=== PATIENT | male | born 1960 | race Caucasian/White ===

== ENCOUNTER 2017-04-20 10:34 | Emergency (ER) | payer MEDICARE, BC ==
[2017-04-20] MEDS: morphine 4 MG/ML VIAL IV (12:01)
[2017-04-20] MEDS: CLINDAMYCIN 600 MG/D5W (PMX) 50 ML IVPB (12:02)
[2017-04-20] MEDS: DIPHTH/TET/ACEL PERTUSS (ADULT) 0.5 ML VIAL IM* (12:02)
[2017-04-20 12:04] LABS: ADD MAN DIFF? NO
[2017-04-20 12:09] LABS: BASOPHIL # 0.1 10^3/ul (0.0-0.1); BASOPHILS % 0.9 % (0.0-2.0); EOSINOPHILS # 0.1 10^3/ul (0.0-0.5); EOSINOPHILS % 1.2 % (0.0-7.0); HEMATOCRIT 34.8 % (42.0-52.0); HEMOGLOBIN 11.4 g/dl (14.0-18.0); LYMPHOCYTES % 13.6 % (15.0-51.0); MEAN CORPUSCULAR HEMOGLOBIN 32.3 pg (29.0-33.0); MEAN CORPUSCULAR HGB CONC 32.8 g/dl (32.0-37.0); MEAN CORPUSCULAR VOLUME 98.6 fl (82.0-101.0); MEAN PLATELET VOLUME 10.8 fl (7.4-10.4); MONOCYTE # 0.8 10^3/ul (0.3-0.9); MONOCYTES % 10.7 % (0.0-11.0); NEUTROPHIL # 5.4 10^3/ul (1.6-7.5); NEUTROPHILS % 71.5 % (39.0-77.0); PLATELET COUNT 146 10^3/UL (140-415); RED BLOOD COUNT 3.53 10^6/ul (4.70-6.10); RED CELL DISTRIBUTION WIDTH 17.7 % (11.5-14.5)
[2017-04-20 12:09] LABS: WHITE BLOOD COUNT 7.5 10^3/ul (4.8-10.8)
[2017-04-20 12:38] LABS: ALANINE AMINOTRANSFERASE 37 IU/L (13-69); ALBUMIN 4.9 g/dl (3.3-4.9); ALBUMIN/GLOBULIN RATIO 1.13; ALKALINE PHOSPHATASE 226 IU/L (42-121); ANION GAP 20 (8-16); ASPARTATE AMINO TRANSFERASE 50 IU/L (15-46); BILIRUBIN,INDIRECT 0.1 mg/dl (0-1.1); BILIRUBIN,TOTAL 0.1 mg/dl (0.2-1.3); BLOOD UREA NITROGEN 10 mg/dl (7-20); CALCIUM 9.9 mg/dl (8.4-10.2); CARBON DIOXIDE 25 mmol/L (21-31); CHLORIDE 107 mmol/L (97-110); CREATININE 0.77 mg/dl (0.61-1.24); GLUCOSE 149 mg/dl (70-220); POTASSIUM 4.6 mmol/L (3.5-5.1); SODIUM 147 mmol/L (135-144); TOTAL PROTEIN 9.2 g/dl (6.1-8.1)
[2017-04-20] MEDS: CIPROFLOXACIN 400MG/D5W 200 ML IVPB (13:12)
== END 2017-04-20 15:10 | disposition home or self-care (01) ==
LOC: FTE 10:34
DX: S91.332A Puncture wound without foreign body, left foot, initial encounter (principal); L03.116 Cellulitis of left lower limb; F17.210 Nicotine dependence, cigarettes, uncomplicated; W45.0XXA Nail entering through skin, initial encounter; Y92.9 Unspecified place or not applicable; Z23 Encounter for immunization
CPT/HCPCS: 36415; 72100; 73630-LT; 80053; 85025; 90471; 90715; 96374; 96375; 99284-25

== ENCOUNTER 2017-04-24 10:36 | Inpatient (IN) | payer MEDICARE, BC ==
[2017-04-24 13:03] LABS: ADD MAN DIFF? NO
[2017-04-24 13:05] LABS: BASOPHIL # 0.1 10^3/ul (0.0-0.1); BASOPHILS % 0.8 % (0.0-2.0); EOSINOPHILS # 0.1 10^3/ul (0.0-0.5); EOSINOPHILS % 1.5 % (0.0-7.0); HEMATOCRIT 32.7 % (42.0-52.0); HEMOGLOBIN 10.6 g/dl (14.0-18.0); LYMPHOCYTES # 1.2 10^3/ul (0.8-2.9); LYMPHOCYTES % 17.3 % (15.0-51.0); MEAN CORPUSCULAR HEMOGLOBIN 31.2 pg (29.0-33.0); MEAN CORPUSCULAR HGB CONC 32.4 g/dl (32.0-37.0); MEAN CORPUSCULAR VOLUME 96.2 fl (82.0-101.0); MEAN PLATELET VOLUME 10.3 fl (7.4-10.4); MONOCYTE # 0.7 10^3/ul (0.3-0.9); NEUTROPHIL # 4.8 10^3/ul (1.6-7.5); NEUTROPHILS % 67.2 % (39.0-77.0); PLATELET COUNT 208 10^3/UL (140-415); RED CELL DISTRIBUTION WIDTH 17.2 % (11.5-14.5)
[2017-04-24 13:05] LABS: WHITE BLOOD COUNT 7.1 10^3/ul (4.8-10.8)
[2017-04-24] MEDS: PIPER-TAZO 3.375 GM IV (PMX) 100 ML IVPB ×2 (13:15→22:00)
[2017-04-24] MEDS: SODIUM CHLORIDE 0.9% 1L BAG IV* (13:15)
[2017-04-24] MEDS: morphine 4 MG/ML VIAL IV (13:15)
[2017-04-24 13:25] LABS: ALANINE AMINOTRANSFERASE 69 IU/L (13-69); ALBUMIN 4.7 g/dl (3.3-4.9); ALKALINE PHOSPHATASE 241 IU/L (42-121); ANION GAP 18 (8-16); ASPARTATE AMINO TRANSFERASE 69 IU/L (15-46); BLOOD UREA NITROGEN 11 mg/dl (7-20); CALCIUM 9.3 mg/dl (8.4-10.2); CARBON DIOXIDE 22 mmol/L (21-31); CHLORIDE 106 mmol/L (97-110); CREATININE 0.73 mg/dl (0.61-1.24); GLUCOSE 135 mg/dl (70-220); POTASSIUM 3.6 mmol/L (3.5-5.1); SODIUM 142 mmol/L (135-144); TOTAL PROTEIN 8.6 g/dl (6.1-8.1)
[2017-04-24] MEDS: LORAZEPAM 1 MG TAB PO (14:01)
[2017-04-24] MEDS: VANCOMYCIN 1 GM (PMX) 250 ML IVPB (14:06)
[2017-04-24] MEDS ORDERED: ONDANSETRON 4 MG INJ IV ×2 (15:30→17:30)
[2017-04-24] MEDS ORDERED: ACETAMINOPHEN 325 MG TAB PO (15:30)
[2017-04-24] MEDS ORDERED: CYCLOBENZAPRINE 10 MG TAB PO (17:30)
[2017-04-24] MEDS ORDERED: VANCOMYCIN IV PER PHARMACY XX (17:30)
[2017-04-24] MEDS ORDERED: ACET/BUTAL/CAFF TAB PO (17:30)
[2017-04-24] MEDS ORDERED: MAGNESIUM HYDROXIDE 30ML CUP PO (17:30)
[2017-04-24] MEDS ORDERED: ALBUTEROL 0.083% (NEB) 2.5 MG/3 ML AMP NEB (17:30)
[2017-04-24] MEDS: NICOTINE (21 MG/24 HR) PATCH TRANSDERM (17:30)
[2017-04-24] MEDS ORDERED: DOCUSATE SODIUM 100 MG CAP PO (17:30)
[2017-04-24] MEDS ORDERED: HYDROCODONE/APAP (5/325) TAB PO (17:30)
[2017-04-24] MEDS: CLINDAMYCIN 900 MG/D5W (PMX) 50 ML IVPB (18:02)
[2017-04-24 18:51] LABS: INR 0.97
[2017-04-24 18:52] LABS: PARTIAL THROMBOPLASTIN TIME 34.9 Sec (25.0-35.0)
[2017-04-24 18:55] LABS: IRON 50 ug/dl (35-150)
[2017-04-24 19:05] LABS: % IRON SATURATION 12 % SAT (22-52); TOTAL IRON BINDING CAPACITY 401 ug/dl (241-421)
[2017-04-24] MEDS: LEVETIRACETAM 500 MG TAB PO (21:35)
[2017-04-25] MEDS: VANCOMYCIN 1 GM (PMX) 250 ML IVPB ×2 (02:02→15:00)
[2017-04-25 05:52] LABS: ADD MAN DIFF? NO
[2017-04-25 06:05] LABS: BASOPHIL # 0.1 10^3/ul (0.0-0.1); BASOPHILS % 1.4 % (0.0-2.0); EOSINOPHILS # 0.1 10^3/ul (0.0-0.5); EOSINOPHILS % 2.4 % (0.0-7.0); HEMATOCRIT 31.1 % (42.0-52.0); HEMOGLOBIN 10.1 g/dl (14.0-18.0); LYMPHOCYTES # 1.3 10^3/ul (0.8-2.9); LYMPHOCYTES % 26.6 % (15.0-51.0); MEAN CORPUSCULAR HEMOGLOBIN 31.3 pg (29.0-33.0); MEAN CORPUSCULAR HGB CONC 32.5 g/dl (32.0-37.0); MEAN CORPUSCULAR VOLUME 96.3 fl (82.0-101.0); MEAN PLATELET VOLUME 10.6 fl (7.4-10.4); MONOCYTE # 0.6 10^3/ul (0.3-0.9); MONOCYTES % 12.5 % (0.0-11.0); NEUTROPHIL # 2.7 10^3/ul (1.6-7.5); NEUTROPHILS % 54.9 % (39.0-77.0); PLATELET COUNT 192 10^3/UL (140-415); RED BLOOD COUNT 3.23 10^6/ul (4.70-6.10); RED CELL DISTRIBUTION WIDTH 17.2 % (11.5-14.5)
[2017-04-25] MEDS: PIPER-TAZO 3.375 GM IV (PMX) 100 ML IVPB ×3 (06:05→21:49)
[2017-04-25] MEDS: PANTOPRAZOLE (EC) 40 MG TAB PO (06:06)
[2017-04-25 06:32] LABS: ALBUMIN 3.9 g/dl (3.3-4.9); ANION GAP 13 (8-16); BLOOD UREA NITROGEN 12 mg/dl (7-20); CALCIUM 9.4 mg/dl (8.4-10.2); CARBON DIOXIDE 24 mmol/L (21-31); CHLORIDE 108 mmol/L (97-110); CREATININE 0.82 mg/dl (0.61-1.24); GLUCOSE 138 mg/dl (70-220); MAGNESIUM 1.9 mg/dl (1.7-2.5); PHOSPHORUS 4.1 mg/dl (2.5-4.9); POTASSIUM 4.1 mmol/L (3.5-5.1); SODIUM 141 mmol/L (135-144)
[2017-04-25] MEDS ORDERED: DEXTROSE 5%-0.45% NACL 1,000 ML IV ×2 (09:00→20:00)
[2017-04-25] MEDS: LEVETIRACETAM 500 MG TAB PO ×2 (09:13→20:08)
[2017-04-25] MEDS: AMLODIPINE 5 MG TAB PO (09:14)
[2017-04-25] MEDS: ASPIRIN (EC) 81 MG TAB PO (09:15)
[2017-04-25] MEDS: NICOTINE (21 MG/24 HR) PATCH TRANSDERM (17:29)
[2017-04-26] MEDS: hydrALAzine 20 MG INJ IV (00:06)
[2017-04-26 01:30] LABS: VANCOMYCIN,TROUGH 10.8 ug/ml (10.0-20.0)
[2017-04-26] MEDS: VANCOMYCIN 1 GM (PMX) 250 ML IVPB ×2 (01:56→14:16)
[2017-04-26 06:16] LABS: ADD MAN DIFF? NO
[2017-04-26 06:29] LABS: BASOPHIL # 0.1 10^3/ul (0.0-0.1); EOSINOPHILS # 0.1 10^3/ul (0.0-0.5); EOSINOPHILS % 2.3 % (0.0-7.0); HEMATOCRIT 32.4 % (42.0-52.0); HEMOGLOBIN 10.5 g/dl (14.0-18.0); LYMPHOCYTES # 1.5 10^3/ul (0.8-2.9); LYMPHOCYTES % 24.1 % (15.0-51.0); MEAN CORPUSCULAR HGB CONC 32.4 g/dl (32.0-37.0); MEAN CORPUSCULAR VOLUME 95.6 fl (82.0-101.0); MEAN PLATELET VOLUME 10.5 fl (7.4-10.4); MONOCYTE # 0.6 10^3/ul (0.3-0.9); MONOCYTES % 9.1 % (0.0-11.0); NEUTROPHIL # 3.8 10^3/ul (1.6-7.5); NEUTROPHILS % 61.9 % (39.0-77.0); PLATELET COUNT 209 10^3/UL (140-415); RED BLOOD COUNT 3.39 10^6/ul (4.70-6.10); RED CELL DISTRIBUTION WIDTH 16.9 % (11.5-14.5)
[2017-04-26 06:29] LABS: WHITE BLOOD COUNT 6.1 10^3/ul (4.8-10.8)
[2017-04-26] MEDS: PANTOPRAZOLE (EC) 40 MG TAB PO (06:45)
[2017-04-26] MEDS: PIPER-TAZO 3.375 GM IV (PMX) 100 ML IVPB ×3 (06:45→20:53)
[2017-04-26 06:49] LABS: ALBUMIN 4.4 g/dl (3.3-4.9); ANION GAP 15 (8-16); BLOOD UREA NITROGEN 12 mg/dl (7-20); CALCIUM 9.8 mg/dl (8.4-10.2); CARBON DIOXIDE 26 mmol/L (21-31); CHLORIDE 107 mmol/L (97-110); CREATININE 0.75 mg/dl (0.61-1.24); GLUCOSE 141 mg/dl (70-220); MAGNESIUM 1.9 mg/dl (1.7-2.5); PHOSPHORUS 3.7 mg/dl (2.5-4.9); POTASSIUM 3.9 mmol/L (3.5-5.1); SODIUM 144 mmol/L (135-144)
[2017-04-26] MEDS ORDERED: MIDAZOLAM 1 MG/ML 2 ML INJ (07:53)
[2017-04-26] MEDS ORDERED: POLYMYXIN B 500000 UNIT INJ (07:55)
[2017-04-26] MEDS: POLYMYXIN B 500000 UNIT INJ IRR (08:24)
[2017-04-26] MEDS: BACITRACIN 50000 UNITS INJ IRR (08:24)
[2017-04-26] MEDS: BUPIVACAINE 0.25% (MPF) 30 ML INJ (08:35)
[2017-04-26] MEDS ORDERED: PROPOFOL 20 ML (08:42)
[2017-04-26] MEDS ORDERED: LIDOCAINE 100 MG SYRINGE (08:42)
[2017-04-26] MEDS: AMLODIPINE 5 MG TAB PO (09:22)
[2017-04-26] MEDS: ASPIRIN (EC) 81 MG TAB PO (09:22)
[2017-04-26] MEDS: LEVETIRACETAM 500 MG TAB PO ×2 (09:22→20:52)
[2017-04-26] MEDS: NICOTINE (21 MG/24 HR) PATCH TRANSDERM (17:25)
[2017-04-27] MEDS: VANCOMYCIN 1 GM (PMX) 250 ML IVPB ×2 (02:26→15:16)
[2017-04-27 05:26] LABS: ADD MAN DIFF? NO
[2017-04-27 05:31] LABS: WHITE BLOOD COUNT 6.5 10^3/ul (4.8-10.8)
[2017-04-27 05:31] LABS: BASOPHIL # 0.1 10^3/ul (0.0-0.1); BASOPHILS % 1.1 % (0.0-2.0); EOSINOPHILS # 0.1 10^3/ul (0.0-0.5); EOSINOPHILS % 1.7 % (0.0-7.0); HEMATOCRIT 31.1 % (42.0-52.0); HEMOGLOBIN 10.1 g/dl (14.0-18.0); LYMPHOCYTES # 1.7 10^3/ul (0.8-2.9); LYMPHOCYTES % 26.1 % (15.0-51.0); MEAN CORPUSCULAR HEMOGLOBIN 30.8 pg (29.0-33.0); MEAN CORPUSCULAR HGB CONC 32.5 g/dl (32.0-37.0); MEAN CORPUSCULAR VOLUME 94.8 fl (82.0-101.0); MEAN PLATELET VOLUME 10.5 fl (7.4-10.4); MONOCYTE # 0.6 10^3/ul (0.3-0.9); MONOCYTES % 8.8 % (0.0-11.0); NEUTROPHILS % 61.4 % (39.0-77.0); PLATELET COUNT 204 10^3/UL (140-415); POSITIVE DIFF @See below; RED BLOOD COUNT 3.28 10^6/ul (4.70-6.10); RED CELL DISTRIBUTION WIDTH 16.4 % (11.5-14.5)
[2017-04-27] MEDS: PIPER-TAZO 3.375 GM IV (PMX) 100 ML IVPB ×3 (05:53→21:19)
[2017-04-27] MEDS: PANTOPRAZOLE (EC) 40 MG TAB PO ×2 (05:53→05:57)
[2017-04-27 06:09] LABS: ALBUMIN 4.2 g/dl (3.3-4.9); ANION GAP 15 (8-16); BLOOD UREA NITROGEN 11 mg/dl (7-20); CALCIUM 9.3 mg/dl (8.4-10.2); CARBON DIOXIDE 24 mmol/L (21-31); CHLORIDE 108 mmol/L (97-110); CREATININE 0.85 mg/dl (0.61-1.24); GLUCOSE 152 mg/dl (70-220); MAGNESIUM 1.9 mg/dl (1.7-2.5); PHOSPHORUS 3.6 mg/dl (2.5-4.9); POTASSIUM 3.8 mmol/L (3.5-5.1); SODIUM 143 mmol/L (135-144)
[2017-04-27] MEDS: AMLODIPINE 5 MG TAB PO (08:27)
[2017-04-27] MEDS: LEVETIRACETAM 500 MG TAB PO ×2 (08:27→20:33)
[2017-04-27] MEDS: ASPIRIN (EC) 81 MG TAB PO (08:27)
[2017-04-27] MEDS: HYDROCODONE/APAP (5/325) TAB PO ×2 (11:29→17:39)
[2017-04-27] MEDS: NICOTINE (21 MG/24 HR) PATCH TRANSDERM (17:39)
[2017-04-28] MEDS: VANCOMYCIN 1 GM (PMX) 250 ML IVPB (02:05)
[2017-04-28] MEDS: PANTOPRAZOLE (EC) 40 MG TAB PO (05:21)
[2017-04-28] MEDS: PIPER-TAZO 3.375 GM IV (PMX) 100 ML IVPB (05:21)
[2017-04-28] MEDS: LEVETIRACETAM 500 MG TAB PO ×2 (09:27→21:18)
[2017-04-28] MEDS: AMLODIPINE 5 MG TAB PO (09:28)
[2017-04-28] MEDS: ASPIRIN (EC) 81 MG TAB PO (09:28)
[2017-04-28] MEDS: CEFTRIAXONE 1 GM/50 ML (PMX) 50 ML IVPB (12:57)
[2017-04-28] MEDS: NICOTINE (21 MG/24 HR) PATCH TRANSDERM (17:46)
[2017-04-29 02:30] LABS: VANCOMYCIN,TROUGH 6.2 ug/ml (10.0-20.0)
[2017-04-29] MEDS: PANTOPRAZOLE (EC) 40 MG TAB PO (06:09)
[2017-04-29] MEDS: ACETAMINOPHEN 325 MG TAB PO (06:10)
[2017-04-29 06:45] LABS: HEMATOCRIT 31.7 % (42.0-52.0); HEMOGLOBIN 10.3 g/dl (14.0-18.0); MEAN CORPUSCULAR HEMOGLOBIN 31.1 pg (29.0-33.0); MEAN CORPUSCULAR HGB CONC 32.5 g/dl (32.0-37.0); MEAN CORPUSCULAR VOLUME 95.8 fl (82.0-101.0); MEAN PLATELET VOLUME 11.2 fl (7.4-10.4); PLATELET COUNT 195 10^3/UL (140-415); POSITIVE DIFF @See below; RED BLOOD COUNT 3.31 10^6/ul (4.70-6.10); RED CELL DISTRIBUTION WIDTH 16.3 % (11.5-14.5)
[2017-04-29 06:45] LABS: WHITE BLOOD COUNT 4.5 10^3/ul (4.8-10.8)
[2017-04-29 06:57] LABS: ADD MAN DIFF? YES
[2017-04-29 07:08] LABS: ANION GAP 15 (8-16); BLOOD UREA NITROGEN 19 mg/dl (7-20); CALCIUM 9.3 mg/dl (8.4-10.2); CARBON DIOXIDE 24 mmol/L (21-31); CHLORIDE 107 mmol/L (97-110); CREATININE 0.85 mg/dl (0.61-1.24); GLUCOSE 152 mg/dl (70-220); MAGNESIUM 1.9 mg/dl (1.7-2.5); POTASSIUM 3.7 mmol/L (3.5-5.1); SODIUM 142 mmol/L (135-144)
[2017-04-29 08:12] LABS: ANISOCYTOSIS 1+ (0-0); BASOPHIL #M 0.1 10^3/ul (0.0-0.0); BASOPHILS % (M) 3 % (0-2); EOSINOPHILS % (M) 2 % (0-7); LYMPHOCYTES #M 1.3 10^3/ul (0.8-2.9); LYMPHOCYTES % (M) 29 % (15-51); MICROCYTOSIS 1+ (0-0); MONOCYTE #M 0.3 10^3/ul (0.3-0.9); MONOCYTES % (M) 7 % (0-11); MYELOCYTES % (M) 1 % (0-0); PLATELET ESTIMATE NORMAL; POLYCHROMASIA 3+ (0-0); REACTIVE LYMPHOCYTES% (M) 1 % (0-0); SEGMENTED NEUTROPHILS (M) % 57 % (39-77); SMUDGE%M 6 % (0-0)
[2017-04-29] MEDS: LEVETIRACETAM 500 MG TAB PO (09:15)
[2017-04-29] MEDS: AMLODIPINE 5 MG TAB PO (09:15)
[2017-04-29] MEDS: ASPIRIN (EC) 81 MG TAB PO (09:16)
[2017-04-29] MEDS: LEVOFLOXACIN 500 MG TAB PO ×2 (12:30)
[2017-04-30] MEDS ORDERED: LEVOFLOXACIN 500 MG TAB PO (06:00)
== END 2017-04-29 17:32 | disposition home health service (06) | DRG 570 ==
LOC: ICU 15:10 → FTE 10:36 → PP2 04-26 13:55
PROC: 0J9R0ZX Drainage of Left Foot Subcutaneous Tissue and Fascia, Open Approach, Diagnostic (ICD-10-PCS; principal; 2017-04-26 07:30)
PROC: 0JBR0ZZ Excision of Left Foot Subcutaneous Tissue and Fascia, Open Approach (ICD-10-PCS; 2017-04-26 07:30)
DX: L03.116 Cellulitis of left lower limb (principal); I62.02 Nontraumatic subacute subdural hemorrhage; L02.612 Cutaneous abscess of left foot; G40.909 Epilepsy, unspecified, not intractable, without status epilepticus; D64.9 Anemia, unspecified; F17.200 Nicotine dependence, unspecified, uncomplicated; Z87.820 Personal history of traumatic brain injury; Z91.81 History of falling; Z79.82 Long term (current) use of aspirin; Z79.1 Long term (current) use of non-steroidal anti-inflammatories (NSAID)
CPT/HCPCS: 36415; 70450; 73630-LT; 80048; 80053; 80069; 80202; 83540; 83735; 84100; 85025; 85610; 85730; 87040; 87070; 87075; 87081; 87102; 96365; 96366; 96375; 96376; 97116; 97162; 97530; 99291-25

== ENCOUNTER 2018-04-06 14:19 | Emergency (ER) | payer MEDICARE, BC ==
[2018-04-06] MEDS: KETOROLAC 30 MG INJ IM (18:57)
[2018-04-06] MEDS: LEVETIRACETAM 500 MG TAB PO (19:01)
== END 2018-04-06 20:18 | disposition home or self-care (01) ==
LOC: E/R 14:19
DX: S70.02XA Contusion of left hip, initial encounter (principal); G40.909 Epilepsy, unspecified, not intractable, without status epilepticus; I10 Essential (primary) hypertension; X58.XXXA Exposure to other specified factors, initial encounter; Y92.9 Unspecified place or not applicable; Z79.82 Long term (current) use of aspirin
CPT/HCPCS: 70450; 72170; 73502; 73510; 93005; 96372; 99285-25